=== PATIENT | male | born 1960 | race Caucasian/White ===

== ENCOUNTER → 2017-07-24 | Outpatient (CLI) | payer OTHER ==
[~2017-07-24] MED LIST: AMLO-114 PO; ASPEC81 PO; ATOR-24 PO; METO50TA16 PO; SULF500T36 PO
[2017-07-24 17:55] LABS: URINE APPEARANCE CLEAR (CLEAR); URINE BILIRUBIN NEG (NEG); URINE COLOR YELLOW; URINE NITRITE NEG (NEG); URINE SPECIFIC GRAVITY 1.028 (1.000-1.030); UROBILINOGEN NEG (NEG)
[2017-07-24 18:01] LABS: MANUAL MICROSCOPIC REQUIRED? NO; REVIEW REQ? NO
[2017-07-24 18:06] LABS: BLOOD UREA NITROGEN 22 mg/dl (7-18); BUN/CREATININE RATIO 15.7 (10-20); CARBON DIOXIDE 25 mmol/L (21-32); CHLORIDE 110 mmol/L (98-107); GLUCOSE 90 mg/dl (70-99); POTASSIUM 4.3 mmol/L (3.5-5.1); SODIUM 141 mmol/L (136-145)
[2017-07-24 18:07] LABS: PHOSPHORUS 3.4 mg/dl (2.5-4.9)
[2017-07-24 18:25] LABS: URINE PROTIEN/CREAT RATIO 0.5 (0-0.2)
== END | disposition home or self-care (01) ==
LOC: C.LABPBG 14:17
PROVIDERS: ATTEND Internal Medicine Nephrology
DX: R80.9 Proteinuria, unspecified (principal)

== ENCOUNTER → 2017-09-03 | Outpatient (CLI) | payer OTHER ==
[2017-09-03 16:35] LABS: BLOOD UREA NITROGEN 19 mg/dl (7-18); BUN/CREATININE RATIO 13.6 (10-20); CARBON DIOXIDE 23 mmol/L (21-32); CHLORIDE 108 mmol/L (98-107); CREATININE 1.42 mg/dl (0.60-1.40); GLUCOSE 102 mg/dl (70-99); PHOSPHORUS 2.7 mg/dl (2.5-4.9); POTASSIUM 3.8 mmol/L (3.5-5.1); SODIUM 139 mmol/L (136-145)
== END | disposition home or self-care (01) ==
LOC: C.LABPBG 10:33
PROVIDERS: ATTEND Internal Medicine Nephrology
DX: R80.9 Proteinuria, unspecified (principal)

== ENCOUNTER → 2018-03-06 | Outpatient (CLI) | payer OTHER ==
[2018-03-06 17:16] LABS: BLOOD UREA NITROGEN 13 mg/dl (7-18); CALCIUM 9.7 mg/dl (8.5-10.1); CARBON DIOXIDE 26 mmol/L (21-32); CREATININE 1.46 mg/dl (0.60-1.40); GLUCOSE 102 mg/dl (70-99); PHOSPHORUS 2.8 mg/dl (2.5-4.9); POTASSIUM 3.5 mmol/L (3.5-5.1); SODIUM 139 mmol/L (136-145)
== END | disposition home or self-care (01) ==
LOC: C.LABPBG 11:56
PROVIDERS: ATTEND Internal Medicine Nephrology
DX: N18.2 Chronic kidney disease, stage 2 (mild) (principal)

== ENCOUNTER → 2018-03-25 | Outpatient (CLI) | payer OTHER ==
[2018-03-25 19:19] LABS: ALBUMIN 4.2 gm/dl (3.4-5.0); BLOOD UREA NITROGEN 20 mg/dl (7-18); CALCIUM 9.6 mg/dl (8.5-10.1); CARBON DIOXIDE 24 mmol/L (21-32); CREATININE 1.33 mg/dl (0.60-1.40); GLUCOSE 82 mg/dl (70-99); POTASSIUM 3.6 mmol/L (3.5-5.1); SODIUM 138 mmol/L (136-145)
[2018-03-25 19:20] LABS: PHOSPHORUS 3.2 mg/dl (2.5-4.9)
== END ==
LOC: C.LABPBG 12:49
PROVIDERS: ATTEND Family Medicine
DX: N17.9 Acute kidney failure, unspecified (principal); N18.3 Chronic kidney disease, stage 3 (moderate)

== ENCOUNTER 2019-12-29 17:16 | Inpatient (IN) ==
[2019-12-29] MEDS ORDERED: MoRPHine SULFATE 10 MG/ML CARP/VIAL IV STA (17:46)
[2019-12-29] MEDS ORDERED: ONDANSETRON INJ 2 MG/ML 2 ML VIAL IV STA (17:46)
[2019-12-29] MEDS ORDERED: SODIUM CHLORIDE 0.9% 1000ML 1,000 ML IV ONE (17:46)
[2019-12-29] MEDS ORDERED: MoRPHine SULFATE 2 MG/ML CARP ONE (18:20)
[2019-12-29] MEDS ORDERED: MoRPHine SULFATE 4 MG/ML 1 ML CARP\\VIAL ONE (18:20)
[2019-12-29 18:37] LABS: Hematocrit (blood only) 52.4 % (42-52); Hemoglobin 18.8 g/dL (14.0-18.0); Mean Corpuscular Hemoglobin 30.9 pg (25-34); Mean Corpuscular Hgb Conc 35.9 g/dL (32-36); Mean Corpuscular Volume 86.2 fL (80-100); RDW Coefficient of Variation 13.6 % (11.5-14.5); RDW Standard Deviation 42.5 fL (36.4-46.3); Red Blood Count 6.08 M/uL (4.7-6.1); White Blood Count 11.63 K/uL (4.8-10.8)
[2019-12-29 18:38] LABS: Albumin Globulin Ratio 0.9 (0.9-2); Albumin Level 3.8 gm/dl (3.4-5.0); BUN Creatinine Ratio 12.4 (10-20); Basophils # (auto) 0.01 K/uL (0-0.2); Basophils % (auto) 0.1 %; Bilirubin,Total 0.8 mg/dl (0.2-1); Calcium 9.6 mg/dl (8.5-10.1); Creatinine Clr Calc Pharmacy 68.5 ml/min; Eosinophils # (auto) 0.07 K/uL (0-0.5); Eosinophils % (auto) 0.6 %; Est GFR (African American) 60.7; Est GFR (Non-African American) 52.4; Globulin 4.5 gm/dl (2.5-4.0); Immature Granulocytes # (auto) 0.08 K/uL (0.00-0.02); Immature Granulocytes % (auto) 0.7 %; Lymphocytes # (auto) 1.29 K/uL (1.2-3.4); Lymphocytes % (auto) 11.1 %; Monocytes # (auto) 0.53 K/uL (0.11-0.59); Monocytes % (auto) 4.6 %; Neutrophils # (auto) 9.65 K/uL (1.4-6.5); Neutrophils % (auto) 82.9 %; Potassium 4.1 mmol/L (3.5-5.1); Total Protein 8.3 gm/dl (6.4-8.2)
[2019-12-29] MEDS ORDERED: IOVERSOL 100ml IV PRN (19:19)
--- NOTE | 2019-12-29 19:51 | CT Scan Report ---
ABDOMEN AND PELVIS CT WITH IV CONTRAST CT DOSE: 1434.83 mGy.cm HISTORY: Acute generalized abdominal pain. Postoperative changes of prior partial colectomy. abd pain no output from ostomy TECHNIQUE: Multiaxial CT images of the abdomen and pelvis were performed following the IV administrat ion of 50 cc of Optiray 320, A dose lowering technique was utilized adhering to the principles of [place] JAKE. COMPARISON STUDY: CT abdomen and pelvis 05/24/2009 FINDINGS: Mild bibasilar atelectasis. No pneumatosis or pneumoperitoneum. The imaged inferior cardiac chambers are mildly enlarged. The spleen, pancreas, gallbladder and adrenal glands are unremarkable. Hepatic s teatosis. No evidence of cirrhosis, hepatic mass lesion or biliary ductal dilation. Patency of the he patic and portal veins. Postoperative changes of prior left nephrectomy. 1.57 m hypodensity of the in terpolar right kidney suggest probable cyst. No right-sided renal calculi or hydronephrosis. Mild wal l thickening of the urinary bladder with partial distention. Prostamegaly. Moderate fat filled left i nguinal hernia. Aorta and IVC are unremarkable. Postoperative changes of prior total colectomy. There is an irregular area of soft tissue thickening with probable enhancement within the pelvis on image 396 series 3 within the area of prior colorectal resection with adjacent surgical sutures overall measuring approximately 1.9 x 2.7 x 3.6 cm in AP, t ransverse and cranial caudal dimensions. Mild adjacent inflammatory stranding. There are a few scatte red presacral and right pelvic sidewall lymph nodes are nonenlarged. Multiple ventral abdominal wall hernias containing both mesenteric fat and small bowel loops, notably within the abdominal right lower quadrant within the area of prior ostomy and also within the ventra l midline with associated diastases. Left lower quadrant ileostomy with parastomal hernia. Multiple d ilated and fluid-filled loops of small bowel are noted throughout the abdomen and pelvis with areas o f interloop edema and perienteric inflammatory stranding with trace ascites. There is a transition po int within the abdominal right lower quadrant image 316 series 3 with decompressed loops of small bow el seen distally. Additionally, there are several loops of stool-filled small bowel. Soft tissues are unremarkable. Bones appear intact. No suspicious lytic or blastic osseous lesions. D egenerative changes of the spine, pelvis and hips. IMPRESSION: 1. Prior colectomy with left lower quadrant ileostomy. Small bowel obstruction with transition point within the abdominal right lower quadrant, likely secondary to small bowel adhesions. 2. Multiple ventral abdominal wall hernias as above containing both mesenteric fat and small bowel lo ops. The hernias however do not appear to be the site of obstruction. 3. Reactive interloop edema with trace abdominopelvic ascites. No pneumatosis or pneumoperitoneum. 4. Irregular enhancing soft tissue at the colorectal resection site adjacent to the staple line measu ring up to 3.6 cm is suspicious for neoplasm with granulation tissue considered less likely. 5. Left nephrectomy. 6. Hepatic steatosis. 7. Additional findings as above. ACT 112: Negative or not required by law. The above report was generated using voice recognition software. It may contain grammatical, syntax o r spelling errors. Electronically signed by: Cortes De Oliveira M.D. 12/29/2019 7:49 PM
--- NOTE | 2019-12-29 22:51 | Emergency Department Note ---
Entered by Sanya Hassan acting as a scribe for Preston Disla DO History of Present Illness General Chief complaint: Constipation Stated complaint: CONSTIPATED, LIGHT HEADED Source: patient History of Present Illness Onset (ago): day(s) 1 Location: abdomen Pain Consistency: + constant Maximum Pain Intensity: 10 Current Pain Intensity: 10 Exacerbated By: + other (eating potatoes last night) Associated symptoms: + denies other symptoms (painful urination) The patient is a 59 year old M who presents to the Emergency Room with co mplaints of constant abdominal pain that started 1 day ago. The patient states that he has a history of Chrons Disease. He adds that he has an ostomy in place. He notes that he has not had any output out of his ostomy since last night. He states that he had potatoes to eat last night. He adds that he thinks that this is the reason that he is currently obstructed. He states that he has been obstructed before due to eating an apple. He adds that he has had 4 obstructions in the past. He notes that his obstruction is causing him to experience abdominal pain. He rates his currently abdominal pain as 10 out of 10. He adds that he is also currently experiencing nausea. He denies that he is currently experiencing any painful urination. Home Medications Home Medications Medication Instructions Recorded Confirmed Type amlodipine 10 mg tablet 10 mg PO DAILY tab 09/01/19 12/29/19 History hydrochlorothiazide 12.5 mg capsule 12.5 mg PO DAILY #30 cap 09/01/19 12/29/19 History metoprolol succinate 100 mg 100 mg PO DAILY tab 09/01/19 12/29/19 History tablet,extended release 24 hr aspirin [Aspir-81] 81 mg PO DAILY 12/29/19 12/29/19 History atorvastatin 40 mg PO DAILY 12/29/19 12/29/19 History Allergies Allergy/AdvReac Type Severity Reaction Status Date / Time Losartan Potassium Allergy Unknown Unknown Uncoded 12/29/19 20:28 Past Med/Surg History Medical History (Updated 12/29/19 @ 22:50 by Preston Disla DO) Acquired solitary kidney (Chronic) Chronic kidney disease, stage 3 (Chronic) Crohn disease (Chronic) HTN (hypertension) (Chronic) Hyperlipidemia (Chronic) Proteinuria (Chronic) Tobacco abuse (Chronic) Social History Preferred Language: Tamaz[place] [employer] Helper Required: No Beliefs That Will Affect Care: None Current Living Situation: Alone Feels Safe at Home: Yes Safety Concerns: Feels Safe At This Time Smoking Status: Current some day smoker Tobacco Type: cigarettes ; Do You Dip or Chew Tobacco: No ; Second Hand Exposure: Yes ; Hx Alcohol Use: Yes Alcohol type: beer Hx Substance Use: Yes substance use type: marijuana Last Used Substance: Days (ago) Last Used Substance Other:: 12/28/19; smokes daily Review of Systems See HPI for pertinent positives & negatives. and A total of 10 systems reviewed and were otherwise negative Physical Exam Vital Signs Vital Signs - 24 hr 12/29/19 17:24 12/29/19 18:27 12/29/19 18:30 Temperature 36.9 C Temperature Source Oral Pulse Rate 120 H 105 H 102 H Pulse Rate from SpO2 Sensor 105 H 102 H Respiratory Rate 18 16 15 Respiratory Effort / Characteristics Non-Labored Respiratory Depth Normal Blood Pressure 143/95 H 161/111 H 146/94 H Blood Pressure Mean 111 121 102 Pulse Oximetry 94 95 94 Oxygen Delivery Method Room Air Sepsis Recent Fever Within 48 Hours No Sepsis Action Taken by Nursing No Action Required 12/29/19 18:31 12/29/19 19:00 12/29/19 19:01 Temperature Temperature Source Pulse Rate 100 H 105 H 100 H Pulse Rate from SpO2 Sensor 101 H 104 H 98 H Respiratory Rate 13 Respiratory Effort / Characteristics Respiratory Depth Blood Pressure 113/89 Blood Pressure Mean 94 Pulse Oximetry 94 93 94 Oxygen Delivery Method Sepsis Recent Fever Within 48 Hours Sepsis Action Taken by Nursing 12/29/19 19:29 12/29/19 19:30 12/29/19 19:31 Temperature Temperature Source Pulse Rate 107 H 103 H 104 H Pulse Rate from SpO2 Sensor 107 H 104 H 105 H Respiratory Rate 16 20 22 Respiratory Effort / Characteristics Respiratory Depth Blood Pressure 174/118 H 145/108 H Blood Pressure Mean 128 120 Pulse Oximetry 95 96 95 Oxygen Delivery Method Sepsis Recent Fever Within 48 Hours Sepsis Action Taken by Nursing 12/29/19 20:00 12/29/19 20:01 12/29/19 20:30 Temperature Temperature Source Pulse Rate 98 H 98 H 96 H Pulse Rate from SpO2 Sensor 96 H Respiratory Rate 19 15 13 Respiratory Effort / Characteristics Respiratory Depth Blood Pressure 146/96 H 138/106 H Blood Pressure Mean 102 122 Pulse Oximetry 95 Oxygen Delivery Method Sepsis Recent Fever Within 48 Hours Sepsis Action Taken by Nursing 12/29/19 20:31 12/29/19 21:00 12/29/19 21:01 Temperature Temperature Source Pulse Rate 96 H 101 H 102 H Pulse Rate from SpO2 Sensor 96 H 100 H 103 H Respiratory Rate 14 17 20 Respiratory Effort / Characteristics Respiratory Depth Blood Pressure 151/110 H Blood Pressure Mean 125 Pulse Oximetry 95 95 96 Oxygen Delivery Method Sepsis Recent Fever Within 48 Hours Sepsis Action Taken by Nursing 12/29/19 21:30 12/29/19 21:31 12/29/19 22:00 Temperature Temperature Source Pulse Rate 97 H 102 H 94 H Pulse Rate from SpO2 Sensor 98 H 94 H Respiratory Rate 13 18 8 L Respiratory Effort / Characteristics Respiratory Depth Blood Pressure 147/88 H 129/93 Blood Pressure Mean 95 106 Pulse Oximetry 94 94 Oxygen Delivery Method Sepsis Recent Fever Within 48 Hours Sepsis Action Taken by Nursing 12/29/19 22:01 Temperature Temperature Source Pulse Rate 96 H Pulse Rate from SpO2 Sensor 96 H Respiratory Rate 9 L Respiratory Effort / Characteristics Respiratory Depth Blood Pressure Blood Pressure Mean Pulse Oximetry 94 Oxygen Delivery Method Sepsis Recent Fever Within 48 Hours Sepsis Action Taken by Nursing GENERAL: Sitting up in bed, disheveled, uncomfortable-appearing, in moderate distress, holding abdomen. EYE EXAM: normal conjunctiva OROPHARYNX: no exudate, no erythema, lips, buccal mucosa, and tongue normal and mucous membranes are moist NECK: supple, no nuchal rigidity, no adenopathy, non-tender LUNGS: Clear to auscultation. Normal chest wall mechanics HEART: no murmurs, S1 normal and S2 normal ABDOMEN: abdomen slightly distended, acute tenderness to palpation of the LLQ, ostomy in LLQ. BACK: Back is symmetrical on inspection and there is no deformity, no midline tenderness, no CVA tenderness. SKIN: no rashes and no bruising UPPER EXTREMITIES: upper extremities are grossly normal. LOWER EXTREMITIES: No pitting edema. NEURO EXAM: Normal sensorium, cranial nerves II-XII grossly intact, normal speech, no gross weakness of arms, no gross weakness of legs. Course Course ED COURSE: Vital signs were reviewed and showed hypertension. The patients medical record was reviewed The above diagnostic studies were performed and reviewed. ED treatments and interventions as stated above. 1740: The patient was evaluated in room C8. A complete history and physical examination was performed. 2019: I reviewed the patient's case with Dr. South, [facility] [place]. He states to bring the patient into medicine. 2026: I re-checked the patient. The patient adamantly denies an NG tube. 2029: I reviewed the patient's case with Dr. Eligio Yanez, [facility] Hospitalist. He will evaluate the patient for further management. 2032: Upon reevaluation, the patient is not doing any better. I discussed my findings with the patient and he understands and agrees with the treatment plan. Based on the patients age, coexisting illnesses, exam and lab findings the dec ision to treat as an inpatient was made. The patient remained stable while under my care. The patient will be evaluated for further management. Administered Medications Ioversol (Optiray 320 100ml) 50 ml IV ONCE PRN PRN Reason: Interaction Checking Stop: 01/02/20 19:18 Last Admin: 12/29/19 19:20 Dose: 50 ml Documented by: [id number] Discontinued Medications Sodium Chloride (Nss 1000ml) 1,000 mls @ 999 mls/hr IV .Q1H1M ONE Stop: 12/29/19 18:46 Last Infusion: 12/29/19 19:24 Dose: 0 mls/hr Documented by: [id number] Admin: 12/29/19 18:23 Dose: 999 mls/hr Documented by: [id number] Morphine Sulfate (Morphine Sulfate) 6 mg IV NOW STA Stop: 12/29/19 17:47 Last Admin: 12/29/19 18:24 Dose: Not Given Documented by: [id number] Morphine Sulfate (Morphine Sulfate) Confirm Administered Dose 4 mg .ROUTE .STK- MED ONE Stop: 12/29/19 18:21 Last Admin: 12/29/19 18:24 Dose: 4 mg Documented by: [id number] Morphine Sulfate (Morphine Sulfate) Confirm Administered Dose 2 mg .ROUTE .STK- MED ONE Stop: 12/29/19 18:21 Last Admin: 12/29/19 18:24 Dose: 2 mg Documented by: [id number] Ondansetron HCl (Zofran) 4 mg IV NOW STA Stop: 12/29/19 17:47 Last Admin: 12/29/19 18:23 Dose: 4 mg Documented by: [id number] Medical Decision Making Differential Diagnosis Differential diagnoses includes but is not limited to gastritis, peptic ulcer disease, GERD, gallbladder disease, pancreatitis, small bowel obstruction, acute coronary syndrome, pericarditis, ischemic bowel, irritable bowel disease, irritable bowel syndrome, appendicitis, diverticulitis, malignancy, hernia, urinary tract infection, torsion, perforation, trauma, infectious. Medical Records Attestation: I reviewed the patient's medical records. Home Medications Current Medication List: was personally reviewed by me Laboratory Data Attestation: I reviewed the patient's lab results. Result diagrams: 12/29/19 18:00 12/29/19 18:00 Lab Results 12/29/19 12/29/19 Range/Units 18:00 18:00 WBC 11.63 H (4.8-10.8) K/uL RBC 6.08 (4.7-6.1) M/uL Hgb 18.8 H (14.0-18.0) g/dL Hct 52.4 H (42-52) % MCV 86.2 (80-100) fL MCH 30.9 (25-34) pg MCHC 35.9 (32-36) g/dL RDW Std Deviation 42.5 (36.4-46.3) fL RDW Coeff of Rm 13.6 (11.5-14.5) % Plt Count (130-400) K/uL MPV (7.4-10.4) fL Immature Gran % (Auto) 0.7 % Neut % (Auto) 82.9 % Lymph % (Auto) 11.1 % [place] % (Auto) 4.6 % Eos % (Auto) 0.6 % Baso % (Auto) 0.1 % Immature Gran # (Auto) 0.08 H (0.00-0.02) K/uL Neut # (Auto) 9.65 H (1.4-6.5) K/uL Lymph # (Auto) 1.29 (1.2-3.4) K/uL [place] # (Auto) 0.53 (0.11-0.59) K/uL Eos # (Auto) 0.07 (0-0.5) K/uL Baso # (Auto) 0.01 (0-0.2) K/uL Sodium 137 (136-145) mmol/L Potassium 4.1 (3.5-5.1) mmol/L Chloride 105 (98-107) mmol/L Carbon Dioxide 24 (21-32) mmol/L Anion Gap 8.0 (3-11) BUN 18 (7-18) mg/dl Creatinine 1.44 H (0.6-1.4) mg/dl Est Cr Clr Drug Dosing 68.5 ml/min Est GFR ( Amer) 60.7 Est GFR (Non-Af Amer) 52.4 BUN/Creatinine Ratio 12.4 (10-20) Glucose 122 H (70-99) mg/dl Calcium 9.6 (8.5-10.1) mg/dl Total Bilirubin 0.8 (0.2-1) mg/dl AST 28 (15-37) U/L ALT 52 (12-78) U/L Alkaline Phosphatase 104 (45-117) U/L Total Protein 8.3 H (6.4-8.2) gm/dl Albumin 3.8 (3.4-5.0) gm/dl Globulin 4.5 H (2.5-4.0) gm/dl Albumin/Globulin Ratio 0.9 (0.9-2) Lipase 236 (73-393) U/L Specimen Hemolysis Imaging Data Radiologist's Impression: Radiology results as stated below per my review and the radiologist's interpretation: ABDOMEN AND PELVIS CT WITH IV CONTRAST CT DOSE: 1434.83 mGy.cm HISTORY: Acute generalized abdominal pain. Postoperative changes of prior partial colectomy. abd pain no output from ostomy TECHNIQUE: Multiaxial CT images of the abdomen and pelvis were performed following the IV administration of 50 cc of Optiray 320, A dose lowering technique was utilized adhering to the principles of ALARA. COMPARISON STUDY: CT abdomen and pelvis 05/24/2009 FINDINGS: Mild bibasilar atelectasis. No pneumatosis or pneumoperitoneum. The imaged inferior cardiac chambers are mildly enlarged. The spleen, pancreas, gallbladder and adrenal glands are unremarkable. Hepatic steatosis. No evidence of cirrhosis, hepatic mass lesion or biliary ductal dilation. Patency of the hepa tic and portal veins. Postoperative changes of prior left nephrectomy. 1.57 m hypodensity of the interpolar right kidney suggest probable cyst. No right-sided renal calculi or hydronephrosis. Mild wall thickening of the urinary bladder with partial distention. Prostamegaly. Moderate fat filled left inguinal hernia. Aorta and IVC are unremarkable. Postoperative changes of prior total colectomy. There is an irregular area of soft tissue thickening with probable enhancement within the pelvis on image 396 series 3 within the area of prior colorectal resection with adjacent surgical sutures overall measuring approximately 1.9 x 2.7 x 3.6 cm in AP, transverse and cranial caudal dimensions. Mild adjacent inflammatory stranding. There are a few scattered presacral and right pelvic sidewall lymph nodes are nonenlarged. Multiple ventral abdominal wall hernias containing both mesenteric fat and small bowel loops, notably within the abdominal right lower quadrant within the area of prior ostomy and also within the ventral midline with associated diastases. Left lower quadrant ileostomy with parastomal hernia. Multiple dilated and fluid-filled loops of small bowel are noted throughout the abdomen and pelvis with areas of interloop edema and perienteric inflammatory stranding with trace ascites. There is a transition point within the abdominal right lower quadrant image 316 series 3 with decompressed loops of small bowel seen distally. Additionally, there are several loops of stool-filled small bowel. Soft tissues are unremarkable. Bones appear intact. No suspicious lytic or blastic osseous lesions. Degenerative changes of the spine, pelvis and hips. IMPRESSION: 1. Prior colectomy with left lower quadrant ileostomy. Small bowel obstruction with transition point within the abdominal right lower quadrant, likely secondary to small bowel adhesions. 2. Multiple ventral abdominal wall hernias as above containing both mesenteric fat and small bowel loops. The hernias however do not appear to be the site of obstruction. 3. Reactive interloop edema with trace abdominopelvic ascites. No pneumatosis or pneumoperitoneum. 4. Irregular enhancing soft tissue at the colorectal resection site adjacent to the staple line measuring up to 3.6 cm is suspicious for neoplasm with granulation tissue considered less likely. 5. Left nephrectomy. 6. Hepatic steatosis. 7. Additional findings as above. ACT 112: Negative or not required by law. The above report was generated using voice recognition software. It may contain grammatical, syntax or spelling errors. Electronically signed by: Cortes De Oliveira M.D. 12/29/2019 7:49 PM Blood Pressure Blood Pressure Findings: Elevated blood pressure Blood Pressure Disposition: further management by hospitalist BIENVENIDO Narrative Patient is a 59-year-old male who presents the ER with multiple previous abdominal surgeries secondary to inflammatory bowel disease for abdominal pain associated with nausea. IV was established blood work was obtained and showed mild leukocytosis. BMP with a creatinine slightly elevated at 1.4. LFTs bilirubin and lipase was unremarkable. CT abdomen pelvis shows small bowel obstruction likely secondary to adhesion. Patient was updated at bedside. Patient was given IV fluids. He was given IV narcotics. He rested comfortably. Discussed with general surgery and they did agree with admission to the hospitalist. Patient adamantly declined NG tube. Patient was updated and discussed with hospitalist for admission. Impression & Plan SBO (small bowel obstruction), Abdominal pain, KETAN (acute kidney injury) Discharge Plan Visit Data Chief Complaint: Constipation Stated Complaint: CONSTIPATED, LIGHT HEADED ED Provider: Preston Disla Discharge Problem: SBO (small bowel obstruction), Abdominal pain, KETAN (acute kidney injury) Patient Disposition: Admitted As Inpatient Discharge Instructions Interventions: ED Discharge Assessment Last Done: 12/29/19 22:12 Forms Stand Alone Forms: [facility] Prescriptions Prescriptions: No Action amlodipine 10 mg tablet 10 mg PO DAILY RF: 0 hydrochlorothiazide 12.5 mg capsule 12.5 mg PO DAILY Qty: 30 RF: 0 metoprolol succinate 100 mg tablet extended release 24 hr 100 mg PO DAILY RF: 0 atorvastatin 40 mg tablet 40 mg PO DAILY RF: 0 aspirin [Aspir-81] 81 mg Tablet,Delayed Release (Dr/Ec) 81 mg PO DAILY RF: 0 Referrals Referrals: Marilia Olvera MD [Primary Care Provider] - Discharge Problem: Abdominal pain Qualifiers: Abdominal location: left lower quadrant Qualified Code(s): R10.32 - Left lower quadrant pain The scribe's documentation has been prepared under my direction and personally reviewed by me in its entirety. I confirm that the note above accurately reflects all work, treatment, procedures, and medical decision making performed by me.
[2019-12-29] MEDS ORDERED: ONDANSETRON INJ 2 MG/ML 2 ML VIAL IV PRN (23:01)
[2019-12-29] MEDS ORDERED: HYDROmorphone INJ 0.5 MG/0.5 ML SYR IV PRN (23:01)
[2019-12-29] MEDS ORDERED: ACETAMINOPHEN 325 MG TAB PO PRN (23:01)
[2019-12-29] MEDS: D5W AND NSS 1,000 ML IV SCH (23:23)
--- NOTE | 2019-12-29 23:23 | History and Physical Report ---
DATE OF ADMISSION: 12/29/2019 CHIEF COMPLAINT: Abdominal pain. HISTORY OF PRESENT ILLNESS: This is a 59-year-old male with past medical history significant for hyperlipidemia, history of hyperglycemia, history of hypertension, history of obesity, chronic kidney disease stage III, solitary kidney secondary to accident, idiopathic peripheral neuropathy, tobacco use disorder, history of Crohn's disease status post colectomy and ileostomy, lives alone, comes with abdominal pain starting last night and today it got worse and no stool in ileostomy .When he came to the ER, his pain was severe. With pain medication, his pain is improved now, is only mild and he had a small bowel movement in his ileostomy but it again stopped now. In the ER, he was nauseous initially, but that is resolved. He is resting comfortably and hemodynamically stable. Denies any other complaints. No headache, no blurred vision, no earache, no runny nose, no sore throat, no dysphagia, no odynophagia. Appetite is okay. No chest pain or shortness of breath. No cough, no fever, no chills. Otherwise, no blood in the stool, no black stools. Recently he had hematuria , is supposed to follow with the Nephrology and renal ultrasound done in Sep 2019 was mostly unremarkable. He ambulates okay. No rash, no swelling in the legs. ALLERGIES: LOSARTAN. PAST MEDICAL HISTORY: As mentioned above. PAST SURGICAL HISTORY: Colostomy in 1999 at [place], lumbar laminectomy in 1983 at [place], removal of left kidney due to damage due to trauma in 2013. MEDICATIONS: The patient is on Lipitor 40 mg p.o. daily, amlodipine 10 mg p.o. daily, Toprol-XL 100 mg p.o. daily, hydrochlorothiazide 12.5 mg p.o. daily, aspirin 81 mg p.o. daily. FAMILY HISTORY: Significant for father had aneurysm, father had cardiac arrest. Mother had carotid stenosis. SOCIAL HISTORY: Lives alone. Smoked 0.1 packs a day for 45 years. Alcohol 2-4 times a month. Smokes marijuana. REVIEW OF SYMPTOMS: As per HPI. Rest of the symptoms are negative. PHYSICAL EXAMINATION: GENERAL: The patient is of moderate build, not in acute distress. VITAL SIGNS: Temperature 36.9, pulse 104, respiratory rate 22, blood pressure is 140/108, oxygen 95% room air. HEENT: No pallor, no icterus. Pupils equal, round, reactive to light. NECK: No JVD, no neck masses, no carotid bruits. CARDIOVASCULAR: S1, S2 heard. Regular rate and rhythm. No murmur, no gallop. RESPIRATORY SYSTEM: Normal AP diameter. No accessory muscle use. No wheezing or crackles. ABDOMEN: Colostomy is seen. Soft, bowel sounds present. Mild tenderness around the colostomy site. Mild guarding, no rigidity. No rebound tenderness. No obvious distention. CENTRAL NERVOUS SYSTEM: Cranial nerves II-XII grossly intact, nonfocal. EXTREMITIES: No edema, no erythema. LABORATORY DATA: WBC 11.6, hemoglobin 18.8, hematocrit 42.4. Sodium 137, potassium 4.1, chloride 105, bicarb 24, BUN 18, creatinine 1.4, serum glucose 122, calcium 9.6. Total bilirubin 0.8, AST 28, ALT 52, alkaline phosphatase 104, lipase 236. IMAGING: CT of abdomen and pelvis shows prior colectomy with left lower quadrant ileostomy, small-bowel obstruction with transition point within the abdomen and right lower quadrant likely secondary to small bowel adhesions, multiple ventral abdominal wall hernias containing mesenteric fat and small bowel loops with the hernias however do not appear to be the site of obstruction, reactive interloop edema with trace abdominal pelvic ascites, no pneumatosis or pneumoperitoneum, irregular enhancing soft tissue at the colorectal resection site distant to staple line measuring up to 3.6 cm, suspicious for neoplasm with granulation tissue considered less likely, left nephrectomy, hepatic steatosis. ASSESSMENT AND PLAN: This is a 59-year-old male with history of Crohn's disease status post colectomy and colostomy bag, comes with abdominal pain and found to have small-bowel obstruction. 1. Small-bowel obstruction secondary to adhesions on the CAT scan and history of colectomy for Crohn's disease and colostomy bag. Currently, he had small bowel movement in the ER. Currently no nausea, vomiting and he doesn't want to have NG tube. Surgery notified by the ER. We will keep him n.p.o., IV fluids, IV antiemetics, IV pain meds p.r.n. Consult Surgery in a.m. for further recommendations. 2. Questionable soft tissue mass at the colorectal resection site.Questionable, suspicious for neoplasm. We will await surgical input. 3. History of Crohn's disease status post colectomy and ileostomy in 1999. Since then he is doing fine and does not follow with GI anymore. Not on any medications. 4. History of chronic kidney disease stage III, history of solitary kidneys, left nephrectomy secondary to trauma. Baseline creatinine 1.4, current creatinine 1.4. We will follow the labs. 5. History of hypertension. Continue with amlodipine, Toprol-XL. We will hold hydrochlorothiazide and we will monitor the blood pressure. If he is not able to take his oral medications, we will transfer to med/surg tele and place him on IV Lopressor. 6. History of hyperglycemia. Currently placed on D5 normal saline. If the sugars run high, we will change to normal saline and we will follow HbA1c. We will follow the blood sugars. 7. Hyperlipidemia. Continue statin. 8. DVT prophylaxis, SCDs. DISPOSITION: Admit to medical floor. Expect to discharge home and follow with family doctor. Level 1 full code. MTDD
--- NOTE | 2019-12-30 05:36 | Surgery Consultation ---
Date of Consultation December 30, 2019 Assessment & Plan (1) SBO (small bowel obstruction): The patient feels like he is back to normal at this point I started him on full liquid diet if he tolerates that he can certainly be discharged today in the area of suspicious in the rectum can be worked up by GI as an outpatient No need to follow-up in our office I would recommend a low fiber diet Regarding his incisional hernias she is still no evidence of any obstruction either clinically or radiographically I would leave them alone Present on Admission?: Yes History of Present Illness Reason for Consultation: A bowel obstruction Attending Physician: Kodak Damian DO History of Present Illness This very pleasant 59-year-old gentleman approximately 20 years ago underwent colon resection for Crohn's disease as best I can tell was followed up at [facility] [place] where he completed total colectomy with an ileostomy has been followed there regularly experiencing some abdominal discomfort in the last 24 hours was admitted through the emergency room was read as partial bowel obstruction and no output through ileostomy in left lower quadrant The patient states that he is doing well except the last few days had eaten some olives and other vegetables that contain fibers and he feels that this led up to the symptoms that he had with abdominal distention no output through the ileostomy Work-up by CAT scan revealed a transition point in the right lower quadrant and also there is a question raised at the line of resection of the rectum that needs to be evaluated by GI The present time the patient feels fine he had a good output through the ileostomy no abdominal discomfort and wants to have something to drink Allergies Allergy/AdvReac Type Severity Reaction Status Date / Time losartan Allergy Unknown Unknown Verified 12/29/19 23:11 Home Medications Home Medications Medication Instructions Recorded Confirmed Type amlodipine 10 mg tablet 10 mg PO DAILY tab 09/01/19 12/29/19 History hydrochlorothiazide 12.5 mg capsule 12.5 mg PO DAILY #30 cap 09/01/19 12/29/19 History metoprolol succinate 100 mg 100 mg PO DAILY tab 09/01/19 12/29/19 History tablet,extended release 24 hr aspirin [Aspir-81] 81 mg PO DAILY 12/29/19 12/29/19 History atorvastatin 40 mg PO DAILY 12/29/19 12/29/19 History Patient History Medical History (Updated 12/29/19 @ 22:50 by Preston M Disla, DO) Acquired solitary kidney (Chronic) Chronic kidney disease, stage 3 (Chronic) Crohn disease (Chronic) HTN (hypertension) (Chronic) Hyperlipidemia (Chronic) Proteinuria (Chronic) Tobacco abuse (Chronic) Social History Preferred Language: Armenian Buyer Liaison Required: No Beliefs That Will Affect Care: None Current Living Situation: Alone Feels Safe at Home: Yes Safety Concerns: Feels Safe At This Time Smoking Status: Current some day smoker Tobacco Type: cigarettes ; Do You Dip or Chew Tobacco: No ; Second Hand Exposure: Yes ; Hx Alcohol Use: Yes Alcohol type: beer Hx Substance Use: Yes substance use type: marijuana Last Used Substance: Days (ago) Last Used Substance Other:: 12/28/19; smokes daily Physical Exam Physical Exam: Alert coherent very comfortable feels like he is back to normal Gastrointestinal (Abdomen): The abdomen is soft has a midline incisional hernia and right lower quadrant incisional hernia that showed no evidence of any irreducible bowel contents the ileostomy is in the left lower quadrant I did not take the bag off but the patient just stated that he emptied out a full bag recently Results & Data Vital Signs (Past 12 Hours) Vital Signs Temp Pulse Pulse Resp BP BP Pulse Ox 12/29/19 23:02 36.7 C 107 H 16 130/95 95 12/29/19 22:01 96 H 9 L 94 12/29/19 22:00 94 H 8 L 129/93 94 12/29/19 21:31 102 H 18 94 12/29/19 21:30 97 H 13 147/88 H 12/29/19 21:01 102 H 20 96 12/29/19 21:00 101 H 17 151/110 H 95 12/29/19 20:31 96 H 14 95 12/29/19 20:30 96 H 13 138/106 H 95 12/29/19 20:01 98 H 15 12/29/19 20:00 98 H 19 146/96 H 12/29/19 19:31 104 H 22 95 12/29/19 19:30 103 H 20 145/108 H 96 12/29/19 19:29 107 H 16 174/118 H 95 12/29/19 19:01 100 H 94 12/29/19 19:00 105 H 13 113/89 93 12/29/19 18:31 100 H 94 12/29/19 18:30 102 H 15 146/94 H 94 12/29/19 18:27 105 H 16 161/111 H 95 PG Care Time/CCT Total # of Minutes Spent Total Time Spent with Patient: Total time spent is greater than 50% in coordination of care (as documented) at patient's floor/unit and/or counseling patient: Coding Level of Care Code 01058 Inpt Consult Level 4 Diagnoses SBO (small bowel obstruction) K56.609
[2019-12-30 05:51] LABS: Basophils # (auto) 0.02 K/uL (0-0.2); Basophils % (auto) 0.2 %; Eosinophils # (auto) 0.17 K/uL (0-0.5); Eosinophils % (auto) 1.9 %; Hematocrit (blood only) 47.6 % (42-52); Hemoglobin 16.2 g/dL (14.0-18.0); Immature Granulocytes # (auto) 0.02 K/uL (0.00-0.02); Immature Granulocytes % (auto) 0.2 %; Lymphocytes # (auto) 1.76 K/uL (1.2-3.4); Lymphocytes % (auto) 19.4 %; Mean Corpuscular Hemoglobin 29.7 pg (25-34); Mean Corpuscular Volume 87.3 fL (80-100); Monocytes % (auto) 8.8 %; Neutrophils % (auto) 69.5 %; Platelet Count 245 K/uL (130-400); RDW Coefficient of Variation 13.9 % (11.5-14.5); RDW Standard Deviation 44.5 fL (36.4-46.3); Red Blood Count 5.45 M/uL (4.7-6.1); White Blood Count 9.07 K/uL (4.8-10.8)
[2019-12-30] MEDS: D5W AND NSS 1,000 ML IV SCH ×2 (06:07→06:45)
[2019-12-30 06:23] LABS: BUN Creatinine Ratio 10.8 (10-20); Calcium 8.5 mg/dl (8.5-10.1); Creatinine Clr Calc Pharmacy 64.9 ml/min; Est GFR (African American) 56.9; Est GFR (Non-African American) 49.1; Magnesium 2.2 mg/dl (1.8-2.4)
[2019-12-30 07:19] LABS: Estimated Average Glucose 131 mg/dl; Hemoglobin A1C 6.2 % (4.5-5.6)
[2019-12-30] MEDS ORDERED: AMLODIPINE BESYLATE 5 MG TAB PO SCH (09:00)
[2019-12-30] MEDS ORDERED: METOPROLOL SUCC 50MG EXT REL TAB PO SCH (09:00)
[2019-12-30] MEDS ORDERED: ATORVASTATIN 40 MG TAB PO SCH (09:00)
--- NOTE | 2019-12-30 09:09 | Discharge Summary ---
Date of Service December 30, 2019 Admission HPI Per Admitting Provider This is a 59-year-old male with past medical history significant for hyperlipidemia, history of hyperglycemia, history of hypertension, history of obesity, chronic kidney disease stage III, solitary kidney secondary to accident, idiopathic peripheral neuropathy, tobacco use disorder, history of Crohn's disease status post colectomy and ileostomy, lives alone, comes with abdominal pain starting last night and today it got worse and no stool in ileostomy .When he came to the ER, his pain was severe. With pain medication, his pain is improved now, is only mild and he had a small bowel movement in his ileostomy but it again stopped now. In the ER, he was nauseous initially, but that is resolved. He is resting comfortably and hemodynamically stable. Denies any other complaints. No headache, no blurred vision, no earache, no runny nose, no sore throat, no dysphagia, no odynophagia. Appetite is okay. No chest pain or shortness of breath. No cough, no fever, no chills. Otherwise, no blood in the stool, no black stools. Recently he had hematuria , is supposed to follow with the Nephrology and renal ultrasound done in Sep 2019 was mostly unremarkable. He ambulates okay. No rash, no swelling in the legs. Admission Exam Per Admitting Provider GENERAL: The patient is of moderate build, not in acute distress. VITAL SIGNS: Temperature 36.9, pulse 104, respiratory rate 22, blood pressure is 140/108, oxygen 95% room air. HEENT: No pallor, no icterus. Pupils equal, round, reactive to light. NECK: No JVD, no neck masses, no carotid bruits. CARDIOVASCULAR: S1, S2 heard. Regular rate and rhythm. No murmur, no gallop. RESPIRATORY SYSTEM: Normal AP diameter. No accessory muscle use. No wheezing or crackles. ABDOMEN: Colostomy is seen. Soft, bowel sounds present. Mild tenderness around the colostomy site. Mild guarding, no rigidity. No rebound tenderness. No obvious distention. CENTRAL NERVOUS SYSTEM: Cranial nerves II-XII grossly intact, nonfocal. EXTREMITIES: No edema, no erythema. Principal Diagnosis Bowel Obstruction Crohn's CKD HTN HLD Discharge Data Allergies Allergy/AdvReac Type Severity Reaction Status Date / Time losartan Allergy Unknown Unknown Verified 12/29/19 23:11 Consultations 12/29/19 20:27 ED Decision to Admit Stat 12/30/19 08:00 Consult General Surgery Routine Ordered Studies 12/29/19 17:46 CT abd pelvis IV con only Stat Current Diagnoses Unspecified intestinal obstruction, unspecified as to partial versus complete obstruction (12/29/19) Allergies losartan Allergy (Unknown, Verified 12/29/19 23:11) Unknown Height/Weight/Isolation Height 5 ft 10 in Weight 112.4 kg Chemistry 12/29/19 12/30/19 18:00 05:38 Sodium 137 141 Potassium 4.1 4.0 Chloride 105 110 H Carbon Dioxide 24 27 Anion Gap 8.0 4.0 BUN 18 16 Creatinine 1.44 H 1.52 H Glucose 122 H 120 H Hospital Course (1) SBO (small bowel obstruction): (2) Abdominal pain: (3) KETAN (acute kidney injury): (4) Tobacco abuse: (5) Chronic kidney disease, stage 3: (6) Proteinuria: (7) HTN (hypertension): (8) Hyperlipidemia: (9) Crohn disease: (10) Acquired solitary kidney: ASSESSMENT AND PLAN: This is a 59-year-old male with history of Crohn's disease status post colectomy and colostomy bag, comes with abdominal pain and found to have small-bowel obstruction. He had a BM and was seen by surgery who agrees that he can go home 1. Small-bowel obstruction secondary to adhesions on the CAT scan and history of colectomy for Crohn's disease and colostomy bag. 2. Questionable soft tissue mass at the colorectal resection site. f/u c GI in office 3. History of Crohn's disease status post colectomy and ileostomy in 1999. Since then he is doing fine and does not follow with GI anymore. Not on any medications. 4. History of chronic kidney disease stage III, history of solitary kidney, left nephrectomy secondary to trauma. At [facility]. 5. Hypertension. 6. History of hyperglycemia. 7. Hyperlipidemia. Continue statin. DC home per IM and Surgery Total Time Total Time Spent Total Time Spent (In Minutes): 45 mins Total Time Includes: Examination of the Patient, Discharge Planning and Medication Reconciliation Discharge Plan Discharge Items Patient Disposition: Home - Self-Care Reason For Visit: ABDOMINAL PAIN Discharge Diagnosis: Bowel Obstruction Crohn's CKD HTN HLD Condition on Discharge: Good Activity: Resume your previous activity Lifting: Gradually increase as tolerated Bathing: No limitations Sexual Activity: When tolerated Exercise/Sports: Gradually increase as tolerated Driving/Machine Use: No limitations Weightbearing: Full weightbearing Non-emergency contact: Primary Care Provider and Construction Scheduler Call non-emergency contact if: you have any medication questions Follow-up/Referrals: Marilia Olvera MD [Primary Care Provider] - Diet: Carb Consistent or DM2 and Low Fiber Addtl Attending Provider Instructions: None Stand-Alone Forms: [employer], Smoking Cessation Medications and DC Order Prescriptions: Continued amlodipine 10 mg tablet 10 mg PO DAILY RF: 0 hydrochlorothiazide 12.5 mg capsule 12.5 mg PO DAILY Qty: 30 RF: 0 metoprolol succinate 100 mg tablet extended release 24 hr 100 mg PO DAILY RF: 0 atorvastatin 40 mg tablet 40 mg PO DAILY RF: 0 aspirin [Aspir-81] 81 mg Tablet,Delayed Release (Dr/Ec) 81 mg PO DAILY RF: 0 Discharge Orders: Discharge Order (Routine); Ordered 12/30/19 Ordered By: Kodak King/Other Patient Handouts: Prediabetes, A1C Admission Data Admit Date/Time: 12/29/19 21:15 Attending Provider: Kodak Damian Admit Provider: Kiko Yanez Primary Care Provider: Marilia Olvera Other Providers: Kiko Yanez ; Og South
[2019-12-30 09:31] LABS: Appearance Urine Clear (Clear); Bacteria Urine Automated Negative (Negative); Bilirubin Urine Negative (Negative); Blood Urine Negative (Negative); Cast Urine Automated 0 /lpf (0-5); Color Urine Yellow; Epithelial Cell Urine Auto 0-5 /lpf (0-5); Glucose Urine UA Negative (Negative); Ketones Urine Negative (Negative); Leukocyte Esterase Urine Negative (Negative); Nitrite Urine Negative (Negative); Protein Urine 1+ (Negative); RBC Urine Automated 0-4 /hpf (0-4); Specific Gravity Urine 1.028 (1.000-1.030); Urobilinogen Urine Negative (Negative); pH Urine 5.5 (4.5-7.5)
== END 2019-12-30 10:48 | disposition home or self-care (01) | DRG 390 ==
LOC: ED 17:16 → 3W 21:15